=== PATIENT | female | born 1945 | race Caucasian/White ===

== ENCOUNTER → 2018-03-11 | Outpatient (CLI) | payer MEDICARE | LOC: CFH 12:32 | PROVIDERS: ATTEND Internal Medicine | DX: I83.893 Varicose veins of bilateral lower extremities with other complications (principal); R60.0 Localized edema | CPT/HCPCS: 93970 ==

== ENCOUNTER → 2018-04-18 | Outpatient (CLI) | payer MEDICARE | END | disposition home or self-care (01) | LOC: CFH 10:16 | PROVIDERS: ATTEND Internal Medicine | DX: J98.4 Other disorders of lung (principal); K44.9 Diaphragmatic hernia without obstruction or gangrene | CPT/HCPCS: 71046 ==

== ENCOUNTER → 2018-10-25 | Outpatient (CLI) | payer MEDICARE | END | disposition home or self-care (01) | LOC: CFH 11:43 | PROVIDERS: ATTEND Physician Assistant | DX: M19.071 Primary osteoarthritis, right ankle and foot (principal); M20.11 Hallux valgus (acquired), right foot; M77.31 Calcaneal spur, right foot; M79.671 Pain in right foot ==

== ENCOUNTER → 2019-10-09 | Outpatient (CLI) | payer MEDICARE ==
[~2019-10-09] MED LIST: ASCO500T8 PO; BUDE10.22 INH; CHOL200040 PO; Calcium PO; CoQ10 PO; LISI5TAB7 PO; MAGN300C PO; Metoprolol ER PO; NITR100C PO; OMEP-110 PO; OMNIPAQUE 350 MG/ML, 100ML BOTTLE ONE; Pro Air; Probiotic; Vitamin E
== END | disposition home or self-care (01) ==
LOC: RAD 10:29
PROVIDERS: ATTEND Internal Medicine Cardiovascular Disease
DX: I51.7 Cardiomegaly (principal); J98.4 Other disorders of lung; K44.9 Diaphragmatic hernia without obstruction or gangrene; Z96.89 Presence of other specified functional implants; M47.814 Spondylosis without myelopathy or radiculopathy, thoracic region; M40.294 Other kyphosis, thoracic region
CPT/HCPCS: 36415; 71275; 78582; 82565; A9540; A9558; Q9967

== ENCOUNTER 2020-05-03 10:55 | Outpatient (CLI) | payer MEDICARE ==
[~2020-05-03 10:55] MED LIST changes: -OMNIPAQUE 350 MG/ML, 100ML BOTTLE ONE
== END 2020-05-03 23:59 | disposition home or self-care (01) ==
LOC: RAD 10:55
PROVIDERS: ATTEND Physician Assistant Surgical
DX: S52.611A Displaced fracture of right ulna styloid process, initial encounter for closed fracture (principal); S52.571A Other intraarticular fracture of lower end of right radius, initial encounter for closed fracture; X58.XXXA Exposure to other specified factors, initial encounter; Y93.89 Activity, other specified; Y92.89 Other specified places as the place of occurrence of the external cause; Y99.8 Other external cause status

== ENCOUNTER 2020-05-08 12:18 | Emergency (ER) | payer MEDICARE ==
[~2020-05-08] VITALS: Ht 167.6 cm; Wt 88.5 kg
[2020-05-08] MEDS ORDERED: OXYC5TAB2 PO (12:48)
[2020-05-08] MEDS ORDERED: TRAM50TA2 PO (12:48)
[2020-05-08] MEDS ORDERED: ONDA-89 PO (12:48)
[2020-05-08] MEDS ORDERED: METO25TA35 PO (12:48)
--- NOTE | 2020-05-08 12:55 | NUR ---
PT AMBULATORY TO & FROM BR W/OUT INCIDENT; GAIT SLOW & STEADY. DENIED DIZZINESS W/ POSITION CHANGES. VOIDED SPECIMEN PROVIDED.
--- NOTE | 2020-05-08 12:59 | NUR ---
CXR AT BS
[2020-05-08 13:00] LABS: BASOPHILS % (AUTO) 0 % (0-1); EOSINOPHILS # (AUTO) 0.09 x10^3/uL (0-0.4); EOSINOPHILS % (AUTO) 1 % (1-7); LYMPHOCYTES # (AUTO) 1.35 x10^3/uL (1-3.4); LYMPHOCYTES % (AUTO) 14 % (22-44); MD NO; MEAN CORPUSCULAR HEMOGLOBIN 30.6 pg (27.0-34.8); MEAN CORPUSCULAR HGB CONC 33.2 g/dL (32.4-35.8); MEAN PLATELET VOLUME 6.9 fL (7.4-10.4); MONOCYTES # (AUTO) 0.37 x10^3/uL (0.2-0.8); MONOCYTES % (AUTO) 4 % (2-9); NEUTROPHILS # (AUTO) 8.01 x10^3/uL (1.8-6.8); NEUTROPHILS % (AUTO) 82 % (42-75); PLATELET COUNT 242 x10^3/uL (130-400); RED BLOOD COUNT 4.59 x10^6/uL (3.82-5.3); RED CELL DISTRIBUTION WIDTH 14.1 % (9.6-15.2)
[2020-05-08] MEDS ORDERED: SODIUM CHLORIDE 0.9% 1,000ML IVBOLUS ONE (13:00)
[2020-05-08] MEDS ORDERED: PLEASE ENTER HEIGHT AND WEIGHT MC SCH (13:00)
[2020-05-08] MEDS ORDERED: SODIUM CHLORIDE FLUSH 10ML SYR IVF ONE (13:00)
[2020-05-08 13:04] LABS: ALANINE AMINOTRANSFERASE 28 U/L (12-78); ALBUMIN 3.1 g/dL (3.4-5.0); CALCIUM 8.6 mg/dL (8.5-10.1); CREATININE 0.67 mg/dL (0.55-1.02)
[2020-05-08 13:09] LABS: ALKALINE PHOSPHATASE 74 U/L (45-117); BILIRUBIN,TOTAL 0.6 mg/dL (0.2-1.0); TOTAL PROTEIN 6.3 g/dL (6.4-8.2); TROPONIN I < 0.015 ng/mL (0.000-0.045)
[2020-05-08 13:12] LABS: ANION GAP 3 mmol/L (5-15); CHLORIDE 109 mmol/L (98-107)
--- NOTE | 2020-05-08 13:20 | NUR ---
PT PRESENTS W/ RT ARM CASTED AND IN SLING. WRIST FX REPAIR DONE SUNDAY. TOOK OXYCODONE AT 0800, TYLENOL AT 1000, ZOFRAN 4MG AT 0500. RECEIVED ZOFRAN FROM EMS. DENIES NAUSEA CURRENTLY. C/O WRIST PAIN 03/14
--- NOTE | 2020-05-08 13:51 | NUR ---
NS BOLUS INFUSED. RATE DECREASED TO TKO, UNTIL FURTHER NOTICE
--- NOTE | 2020-05-08 13:53 | NUR ---
NS LINE DISCONNECTED SO THAT PT MAY WALK TO BR.
--- NOTE | 2020-05-08 13:57 | NUR ---
PT AMBULATORY TO & FROM [facility] W/OUT INCIDENT; GAIT STEADY. DENIED DIZZINESS W/ POSITION CHANGES
[2020-05-08] MEDS ORDERED: ONDANSETRON 2MG/ML, 2ML IVPush ONE (14:00)
[2020-05-08] MEDS ORDERED: MORPHINE SULFATE 4 MG/ML, 1ML IVPush PRN (14:00)
[2020-05-08] MEDS ORDERED: ONDANSETRON 2MG/ML, 2ML ONE (14:00)
[2020-05-08] MEDS ORDERED: MORPHINE SULFATE 4 MG/ML, 1ML ONE (14:01)
--- NOTE | 2020-05-08 14:06 | NUR ---
ZOFRAN AND MORPHINE GIVEN PER EMAR. PT TO MRI PER DEM[facility].
[2020-05-08 15:30] VITALS: BP 155/82
--- NOTE | 2020-05-08 15:45 | NUR ---
AMBULATORY TO & FROM [facility] W/OUT INCIDENT; GAIT STEADY.
[2020-05-08] MEDS ORDERED: ASPIRIN 81 MG TABLET CHEW ONE (15:52)
[2020-05-08] MEDS ORDERED: ASPIRIN 81 MG TABLET CHEW PO ONE (16:00)
== END 2020-05-08 16:20 | disposition home or self-care (01) ==
LOC: ED 15:26
DX: R42 Dizziness and giddiness (principal); T40.4X5A Adverse effect of other synthetic narcotics, initial encounter; Y92.89 Other specified places as the place of occurrence of the external cause; R47.1 Dysarthria and anarthria; R07.9 Chest pain, unspecified; R00.0 Tachycardia, unspecified; I10 Essential (primary) hypertension; J45.909 Unspecified asthma, uncomplicated
CPT/HCPCS: 36415; 70551; 71045; 80053; 84484; 85025; 96361; 96374; 96375; 99285; J2270; J2405; J7030

== ENCOUNTER 2020-10-25 09:15 | Emergency (ER) | payer MEDICARE ==
[~2020-10-25] VITALS: Ht 167.6 cm; Wt 82.0 kg
[~2020-10-25 09:15] MED LIST changes: +METO25TA35 PO; +ONDA-89 PO; +OXYC5TAB2 PO; +TRAM50TA2 PO
[2020-10-25] MEDS ORDERED: SODIUM CHLORIDE FLUSH 10ML SYR IVF ONE (10:00)
[2020-10-25] MEDS ORDERED: AZIT500T10 PO (10:20)
[2020-10-25] MEDS ORDERED: ALPR0.254 PO (10:20)
[2020-10-25] MEDS ORDERED: DEXA4TAB PO (10:20)
[2020-10-25] MEDS ORDERED: ALBU18HF INH (10:20)
[2020-10-25] MEDS ORDERED: LISI-424 PO (10:20)
[2020-10-25 10:24] LABS: BASOPHILS % (AUTO) 0 % (0-1); EOSINOPHILS % (AUTO) 0 % (1-7); LYMPHOCYTES % (AUTO) 7 % (22-44); MEAN CORPUSCULAR HEMOGLOBIN 30.4 pg (27.0-34.8); MEAN CORPUSCULAR HGB CONC 33.6 g/dL (32.4-35.8); MEAN PLATELET VOLUME 6.8 fL (7.4-10.4); MONOCYTES % (AUTO) 8 % (2-9); NEUTROPHILS % (AUTO) 85 % (42-75); PLATELET COUNT 242 x10^3/uL (130-400); RED BLOOD COUNT 4.69 x10^6/uL (3.82-5.3); RED CELL DISTRIBUTION WIDTH 13.7 % (9.6-15.2)
--- NOTE | 2020-10-25 10:29 | NUR ---
PT A&OX4, RESP EVEN & UNLABORED, SPEECH CLEAR, SKIN WNL. DENIES DYSPNEA AND SOB WHILE BEING STILL. REPORTS DESATURATION W/ ACTIVITY, PER HOME PULSE OX. WAS FEELING BETTER, "THEN TOOK A NOSE DIVE". C/O MID-BACK PAIN. SENSE OF SMELL & TASTE INTACT. STATES SHE WAS DX'D W/ COVID ON 10/08; QUARATINED AT HOME; PCP RX GIVEN FOR STEROID & ANTIBIOTIC. STARTED 2ND WEEK, NOW TAKING 2.5MG PO DAILY X 1 WEEK, CURRENTLY ON DAY 2. ALSO ON DAY 5 OF 10 OF ANTIBIOTIC.
[2020-10-25 10:34] LABS: ALANINE AMINOTRANSFERASE 28 U/L (12-78); ALBUMIN 2.9 g/dL (3.4-5.0); CALCIUM 8.6 mg/dL (8.5-10.1); CREATININE 0.74 mg/dL (0.55-1.02)
[2020-10-25 10:38] LABS: ANION GAP 7 mmol/L (5-15); CHLORIDE 112 mmol/L (98-107)
[2020-10-25 10:39] LABS: ALKALINE PHOSPHATASE 82 U/L (45-117); BILIRUBIN,TOTAL 0.5 mg/dL (0.2-1.0); TOTAL PROTEIN 6.4 g/dL (6.4-8.2)
[2020-10-25 11:05] LABS: MD SCAN
[2020-10-25] MEDS ORDERED: AZITHROMYCIN 500 MG in SODIUM CHLORIDE 0.9% 250 ML IV ONE (11:30)
[2020-10-25] MEDS ORDERED: CEFTRIAXONE PMX 1GM/50ML 50 ML IVPB ONE (11:30)
[2020-10-25] MEDS ORDERED: POTASSIUM CHLORIDE 20 MEQ TAB.ER.PRT PO ONE (11:30)
--- NOTE | 2020-10-25 11:34 | NUR ---
WALK TEST: AMBULATORY W/OUT DIFFICULTY, DENIED DIZZINESS/SOB W/ POSITION CHANGE, ABLE TO SPEAK IN COMPLETE SENTENCES WHILE WALKING. O2 SAT DECREASED TO 90% RA WHILE WALKING & TALKING. ERP WILL BE NOTIFIED.
--- NOTE | 2020-10-25 11:51 | NUR ---
PIV INITIATED; 2ND SET OF BLD CX DRAWN; BLD CX BAND ON WRIST
[2020-10-25] MEDS ORDERED: POTASSIUM CHLORIDE 20 MEQ TAB.ER.PRT ONE (12:00)
[2020-10-25] MEDS ORDERED: CEFTRIAXONE PMX 1GM/50ML 50 ML ONE (12:09)
--- NOTE | 2020-10-25 12:19 | NUR ---
SADI NORWOOD & SWATI GIVEN PER EMAR; IV SITE PATENT. PT SPEAKING ON CELL PHONE W/OUT ANY APPARENT SOB.
[2020-10-25] MEDS ORDERED: FILTER 0.22 MICRON IV ONE (13:00)
[2020-10-25] MEDS ORDERED: BAMLANIVIMAB 700 MG in SODIUM CHLORIDE 0.9% 180 ML IVPB ONE (13:00)
--- NOTE | 2020-10-25 13:28 | NUR ---
ZITHROMAX HUNG; IV SITE PATENT. JUICE & DICKSON CRACKERS PROVIDED TO PT
--- NOTE | 2020-10-25 14:36 | NUR ---
BAM RX HUNG, INFUSING AT 200ML/HR VIA PUMP & RT WRIST IV SITE. ZITHROMAX INFUSING VIA DIAL-AFLOW & LT WRIST IV SITE.
--- NOTE | 2020-10-25 15:02 | NUR ---
ZITHROMAX INFUSED. BAM RX INFUSING. PT RESTING QUIETLY ON GURNEY; RESP EVEN & UNLABORED; DENIES ADVERSE REACTION TO BAM RX.
--- NOTE | 2020-10-25 15:59 | NUR ---
PUMP ALARMING; ISSUE ADDRESSED. INFUSING ALMOST COMPLETE; ERP AWARE. PT RESTING QUIETLY ON GURNEY, RESP EVEN & UNLABORED.
--- NOTE | 2020-10-25 16:23 | NUR ---
BAM RX INFUSED. PT ACCIDENTALLY PULLED LT WRIST IV OUT; BLEEDING CONTROLLED.
--- NOTE | 2020-10-25 16:28 | NUR ---
PT AMBULATORY TO & FROM [facility] W/OUT INCIDENT; GAIT STEADY.
[2020-10-25 17:35] VITALS: BP 140/74
== END 2020-10-25 18:24 | disposition home or self-care (01) ==
LOC: ED 09:39
DX: U07.1 COVID-19 (principal); J18.9 Pneumonia, unspecified organism; R00.0 Tachycardia, unspecified; I10 Essential (primary) hypertension; J45.909 Unspecified asthma, uncomplicated
CPT/HCPCS: 36415; 71045; 80053; 83605; 85025; 87040; 87635; 93005; 96365; 99285; J0456; J0696; J7050; M0239; Q0239

== ENCOUNTER → 2021-01-11 | Outpatient (CLI) | payer MEDICARE ==
[~2021-01-11] MED LIST changes: +ALBU18HF INH; +ALPR0.254 PO; +AZIT500T10 PO; +DEXA4TAB PO; +LISI-606 PO
== END | disposition home or self-care (01) ==
LOC: CFH 08:29
PROVIDERS: ATTEND Internal Medicine Cardiovascular Disease
DX: I34.0 Nonrheumatic mitral (valve) insufficiency (principal); I27.20 Pulmonary hypertension, unspecified; I51.7 Cardiomegaly
CPT/HCPCS: 93306

== ENCOUNTER → 2021-05-06 | Outpatient (CLI) | payer MEDICARE | END | disposition home or self-care (01) | LOC: CFH 09:43 | PROVIDERS: ATTEND Internal Medicine | DX: J84.10 Pulmonary fibrosis, unspecified (principal); R06.02 Shortness of breath; K44.9 Diaphragmatic hernia without obstruction or gangrene | CPT/HCPCS: 71250 ==

== ENCOUNTER → 2021-08-03 | Outpatient (CLI) | payer MEDICARE | END | disposition home or self-care (01) | LOC: CFH 12:46 | PROVIDERS: ATTEND Internal Medicine Cardiovascular Disease | DX: R07.89 Other chest pain (principal) | CPT/HCPCS: 78452; 93017; A9502 ==